=== PATIENT | male | born 1970 | race African-American/Black ===

== ENCOUNTER 2018-08-12 03:50 | Inpatient (IN) | payer SELFPAY ==
--- NOTE | 2018-08-12 04:12 | ER Document Report ---
ED General - General Stated Complaint: UNRESPONSIVE Time Seen by Provider: 08/12/18 04:05 Primary Care Provider: DOTTIE HERNANDEZ [NO LOCAL MD] - Follow up as needed Notes: Patient is a 48-year-old male who presents with complaint of altered mental status. Patient's started having back pain 2 days ago. He says he was hurting all over but mainly in his back. No injuries. No trauma. No fevers. His took him to urgent care on Saturday. They saw him and prescribed him Flexeril and prednisone. He got the prescriptions filled Saturday. At that time he was continued have body aches but also started to have headaches as well. He took the first dose of Flexeril around 1 PM. says around 7 PM he started acting confused and altered. He would at times tense up. Tonight he fell to the floor and was poorly responsive. She called the ambulance. Patient awoke but did not want to go by EMS and therefore the drove him here. When she pulled up he was tensed up in the seat and would not move out the seat. Patient currently cancer some questions but obviously has some confusion. says he has no history of drug abuse. She does not suspect he took any other medications other than Motrin aside from the Flexeril and prednisone. He currently does not take medications on a normal basis. He is never had anything like this ever happened to him before. No fevers over the last few days. In triage she is afebrile. No history of seizures. Patient's says that he does drink every day. She says the last time he drank was Saturday. She is unsure if he is ever had withdrawal as she says he never typically stops drinking. - Related Data Allergies/Adverse Reactions: No Known Allergies Allergy (Verified 08/12/18 05:37) Past Medical History - Social History Smoking Status: Never Smoker Frequency of alcohol use: Heavy Drug Abuse: None Family History: Reviewed & Not Pertinent Review of Systems - Review of Systems Notes: My Normal Review Basic REVIEW OF SYSTEMS: CONSTITUTIONAL : Denies fever, chills, or sweats. Denies recent illness. EENT: Denies eye, ear, throat, or mouth pain or symptoms. Denies nasal or sinus congestion. CARDIOVASCULAR: Denies chest pain. RESPIRATORY: Denies cough, cold, or chest congestion. Denies shortness of breath, difficulty breathing, or wheezing. GASTROINTESTINAL: Denies abdominal pain. Denies nausea, vomiting, or diarrhea. GENITOURINARY: Denies difficulty urinating, painful urination, burning, frequency, or blood in urine. MUSCULOSKELETAL: Denies neck or back pain or joint pain or swelling. SKIN: Denies rash or skin lesions. NEUROLOGICAL: Altered mental status. Headache. Episodes of "tensing up". ALL OTHER SYSTEMS REVIEWED AND NEGATIVE. Physical Exam - Vital signs Vitals: Temp 99.1 F 08/12/18 03:59 - Notes Notes: General Appearance: First into the room the patient is laying in bed with his eyes closed. Eventually able to get him to wake up. Patient still somewhat but able to answer my questions. Most history is obtained from . Patient says he has some pain into his back when I lift his left leg. He denies any pain when I lift his right leg. Vitals: reviewed, See vital signs table. Head: no swelling or tenderness to the head Eyes: PERRL, EOMI, Conjuctiva clear Mouth: No decreasd moisture Throat: No tonsillar inflammation, No airway obstruction, No lymphadenopathy Neck: Supple, no neck tenderness, No thyromegaly Lungs: No wheezing, No rales, No rhonci, No accessory muscle use, good air exchange bilaterally. Heart: Normal rate, Regular rythm, No murmur, no rub Abdomen: Normal BS, soft, No rigidity, No abdominal tenderness, No guarding, no rebound, no abdominal masses, no organomegaly Back: Patient complains of some back pain when I have him sit up. Has some pain to palpation over the lumbar and thoracic paraspinal musculature. Extremities: strength 5/5 in all extremities, good pulses in all extremities, no swelling or tenderness in the extremities, no edema. Skin: warm, dry, appropriate color, no rash Neuro: speech clear, oriented x 2, somnolent affect, responds appropriately to come questions. She is able to move all 4 extremities on his own. Metric facial movement. Course - Re-evaluation Re-evalutation: 08/12/18 05:26 Attempt to perform LP at L4-5. I advanced the needle to what I felt to be the appropriate location but no CSF return. I therefore tried L3-L4 interspace. 08/12/18 05:35 Reports I cannot rule out encephalitis meningitis as a potential cause. I feel like this needs to be ruled out based on the fact patient has leukocytosis and confusion and had a headache and back pain before even starting the medications that he was given at the urgent care. I will go ahead and cover him with acyclovir and Rocephin. I have ordered LP under fluoroscopy to be performed. I did speak with the hospitalist, Dr. Reyna, who agrees to evaluate the patient for admission. His confusion could be related to the cyclobenzaprine that he took a dose of. This can sometimes cause hallucinations and dystonia in some people however, does not explain why he has had so much headache and back pain over the last 2 days. His symptoms could be related to alcohol withdrawal. However I cannot be 100% sure of this either as the patient is not tachycardic and does not have a tremor. I will give him thiamine. I have given folic acid. I have given a dose of Versed. He is getting IV fluids. Patient will be admitted to further determine the cause of his altered mental status. Dictation of this chart was performed using voice recognition software; therefore, there may be some unintended grammatical errors. - Vital Signs Vital signs: Temp Pulse Resp BP Pulse Ox 99.1 F 08/12/18 03:59 - Laboratory Result Diagrams: 08/12/18 03:56 08/12/18 03:56 Laboratory results interpreted by me: 08/12/18 08/12/18 03:56 03:56 WBC 19.3 H Seg Neuts % (Manual) 93 H Lymphocytes % (Manual) 3 L Abs Neuts (Manual) 17.9 H Sodium 132.8 L Chloride 94 L Glucose 183 H Salicylates < 1.0 L Acetaminophen < 10 L - EKG Interpretation by Me Additional EKG results interpreted by me: 08/12/18 04:13 EKG is reviewed and interpreted by me. EKG shows normal sinus rhythm with a rate of [address] segment elevation or depression. No ischemic T wave inversions. IA interval, QRS duration, QT intervals are within normal range. No old EKG available for comparison. Procedures - Lumbar Puncture Lumbar puncture Consent obtained: Yes Patient position: Lying Needle size: 20 Anesthetic type: 1% Lidocaine mL's of anesthetic: 5 Amount/type of drainage: none Number of attempts: 2 Complications: No Discharge - Discharge Clinical Impression: Encephalopathy acute, Back pain, Headache, Alcohol dependence Condition: Good Disposition: ADMITTED INPATIENT Admitting Provider: Hospitalist Unit Admitted: IMCU Referrals: LOCAL,NO [NO LOCAL MD] - Follow up as needed
[2018-08-12 04:21] LABS: HEMATOCRIT 41.4 % (37.9-51.0); HEMOGLOBIN 14.3 g/dL (13.5-17.0); MEAN CORPUSCULAR HEMOGLOBIN 31.8 pg (27.0-33.4); MEAN CORPUSCULAR HGB CONC 34.5 g/dL (32.0-36.0); MEAN CORPUSCULAR VOLUME 92 fl (80-97); PLATELET COUNT 172 10^3/uL (150-450); RED CELL DISTRIBUTION WIDTH 13.9 % (11.5-14.0); WHITE BLOOD COUNT 19.3 10^3/uL (4.0-10.5)
[2018-08-12 04:31] LABS: ALANINE AMINOTRANSFERASE 25 U/L (21-72); ALBUMIN 4.2 g/dL (3.5-5.0); ALKALINE PHOSPHATASE 67 U/L (38-126); ANION GAP 13 (5-19); ASPARTATE AMINO TRANSFERASE 21 U/L (17-59); BILIRUBIN,DIRECT 0.3 mg/dL (0.0-0.4); BILIRUBIN,TOTAL 0.7 mg/dL (0.2-1.3); BLOOD UREA NITROGEN 17 mg/dL (7-20); CALCIUM 9.4 mg/dL (8.4-10.2); CARBON DIOXIDE 26 mmol/L (22-30); CHLORIDE 94 mmol/L (98-107); GLUCOSE 183 mg/dL (75-110); POTASSIUM 3.7 mmol/L (3.6-5.0); SODIUM 132.8 mmol/L (137-145)
[2018-08-12 04:33] LABS: ACETAMINOPHEN < 10 ug/mL (10-30); ALCOHOL < 10 mg/dL (NONE DETECTED); SALICYLATE < 1.0 mg/dL (2.0-20.0)
[2018-08-12] MEDS ORDERED: THIAMINE HCL 500 MG in NORMAL SALINE 250 ML IV ONE (04:35)
--- NOTE | 2018-08-12 04:35 | RADIOLOGY REPORT (SQ) ---
EXAM DESCRIPTION: XR CHEST 1 VIEW COMPLETED DATE/TME: 08/12/2018 04:05 CLINICAL HISTORY: 48 years, Male, altered mental status COMPARISON: None. NUMBER OF VIEWS: One TECHNIQUE: AP view of the chest LIMITATIONS: None. FINDINGS: Lungs are clear. The heart is normal in size. There is no pneumothorax or pleural effusion. There is no acute fracture IMPRESSION: No acute cardiopulmonary abnormality copyright 2010 [employer]- All Rights Reserved
[2018-08-12 04:36] LABS: ABSOLUTE LYMPHOCYTES# (MANUAL) 0.6 10^3/uL (0.5-4.7); ABSOLUTE MONOCYTES # (MANUAL) 0.8 10^3/uL (0.1-1.4); ABSOLUTE NEUTROPHILS# (MANUAL) 17.9 10^3/uL (1.7-8.2); BASOPHILS % (MANUAL) 0 % (0-2); EOSINOPHILS % (MANUAL) 0 % (0-6); LYMPHOCYTES % (MANUAL) 3 % (13-45); MONOCYTES % (MANUAL) 4 % (3-13); SEGMENTED NEUTROPHILS % (MAN) 93 % (42-78); TOTAL CELLS COUNTED 100
[2018-08-12 04:37] LABS: PLATELET COMMENT ADEQUATE; RBC MORPHOLOGY COMMENT NORMO-CYTIC/CHROMIC
[2018-08-12] MEDS ORDERED: NORMAL SALINE 1000 ML 1,000 ML IV ONE (04:38)
[2018-08-12] MEDS ORDERED: DIAZEPAM INJ 10 MG/2 ML DISP.SYRIN IV ONE (04:39)
[2018-08-12] MEDS ORDERED: LIDOCAINE 1% INJ-PF (10 MG/ML) 30 ML SDV INJ ONE (04:39)
[2018-08-12] MEDS ORDERED: THIAMINE HCL INJ 200 MG/2 ML VIAL ONE (04:44)
[2018-08-12] MEDS ORDERED: MIDAZOLAM 2 MG/2 ML INJ IV ONE (04:45)
--- NOTE | 2018-08-12 04:46 | RADIOLOGY REPORT (SQ) ---
CLINICAL HISTORY: altered mental status COMPARISON: None. TECHNIQUE: CT HEAD WITHOUT IV CONTRAST on 08/12/2018 4:05 AM [facility] This exam was performed according to our departmental dose-optimization program, which includes automated exposure control, adjustment of the mA and/or kV according to patient size and/or use of iterative reconstruction technique. FINDINGS: There is no acute hemorrhage, mass effect or midline shift. Laird-white differentiation is preserved. There is no hydrocephalus. There is no significant volume loss for age. The calvarium is intact. Orbits and globes are unremarkable. The paranasal sinuses are clear. Mastoid air cells are clear. IMPRESSION: No acute intracranial findings.
[2018-08-12] MEDS ORDERED: FOLIC ACID INJ 5 MG/1 ML 10 ML VIAL ONE (04:49)
[2018-08-12] MEDS ORDERED: ACYCLOVIR SODIUM INJ/PF 500 MG/10 ML SDV IV ONE (05:00)
[2018-08-12] MEDS ORDERED: FOLIC ACID INJ 5 MG/1 ML 10 ML VIAL IV ONE (05:00)
[2018-08-12] MEDS ORDERED: CEFTRIAXONE INJ 1000 MG VIAL IV ONE (05:00)
[2018-08-12] MEDS ORDERED: MAG HYDROX/AL HYDROX/SIMETH SUSP 30 ML UDCUP PO PRN (05:54)
[2018-08-12] MEDS ORDERED: ONDANSETRON HCL INJ/PF 4 MG/2 ML SDV IV PRN (05:54)
[2018-08-12] MEDS ORDERED: ONDANSETRON 4 MG TAB.RAPDIS PO PRN (05:54)
[2018-08-12] MEDS ORDERED: MAGNESIUM HYDROXIDE SUSP 30 ML UDCUP PO PRN (05:54)
[2018-08-12] MEDS ORDERED: DIAZEPAM INJ 10 MG/2 ML DISP.SYRIN IV PRN (06:02)
[2018-08-12] MEDS ORDERED: LABETALOL HCL INJ 20 MG/4 ML DISP.SYRIN IV PRN (06:02)
[2018-08-12] MEDS ORDERED: NALBUPHINE HCL INJ 10 MG/1 ML AMPULE IV PRN (06:02)
[2018-08-12] MEDS ORDERED: ACETAMINOPHEN 325 MG TABLET PO PRN (06:02)
[2018-08-12] MEDS ORDERED: FENTANYL CITRATE INJ/PF 100 MCG/2 ML AMPUL IV ONE (06:05)
[2018-08-12] MEDS ORDERED: ACYCLOVIR SODIUM INJ/PF 500 MG/10 ML SDV IV SCH (06:15)
[2018-08-12 06:34] LABS: APPEARANCE,URINE CLEAR; BILIRUBIN,URINE NEGATIVE (NEGATIVE); COLOR,URINE YELLOW; GLUCOSE, URINE 150 mg/dL (NEGATIVE); KETONES,URINE NEGATIVE (NEGATIVE); LEUKOCYTE ESTERASE,URINE NEGATIVE (NEGATIVE); NITRITE,URINE NEGATIVE (NEGATIVE); PROTEIN,URINE 30 mg/dL (NEGATIVE); URINE SPECIFIC GRAVITY 1.016
[2018-08-12] MEDS: HEPARIN SOD (PORCINE) 5,000 UNIT/ML 1 ML SYRINGE SUBCUT SCH ×2 (06:49→18:46)
[2018-08-12 06:53] LABS: URINE AMPHETAMINES SCREEN NEGATIVE; URINE BARBITURATES SCREEN NEGATIVE; URINE BENZODIAZEPINES SCREEN UNCONFIRMED POSITIVE; URINE COCAINE SCREEN NEGATIVE; URINE MARIJUANA (THC) SCREEN UNCONFIRMED POSITIVE; URINE METHADONE SCREEN NEGATIVE; URINE PHENCYCLIDINE SCREEN NEGATIVE
[2018-08-12 07:16] LABS: CREATINE KINASE MB 0.35 ng/mL (<4.55)
[2018-08-12 07:17] LABS: TROPONIN I < 0.012 ng/mL
--- NOTE | 2018-08-12 07:17 | PDOC H&P ---
History of Present Illness Admission Date/PCP: 08/12/2018 No PCP Patient complains of: AMS History of Present Illness: NICKI COWAN is a 48 year old male who presented to the emergency room with a 2- day history of generalized malaise and back pain. 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 By the morning of 08/11/2018 his pain had increased to become severe in his right shoulder, right knee and neck and was seen at the urgent care center where he was treated with [id number] ibuprofen, plus prednisone and Flexeril. He took 1 dose of the ibuprofen, prednisone and Flexeril and after several hours felt as though he were actually getting worse rather than better. He had an episode where he became very rigid and unable to move his arms and legs at home for which EMS was summoned to bring him to the emergency room. He refused to be transported to the emergency room and his brought him in their own vehicle. When they arrived at the ER parking lot he again experienced another episode of severe rigidity and inability to move his arms and legs which was also accompanied by incoherent talking and inappropriate answers when his asked him questions. She called EMS again to bring him in from the parking lot to the emergency room. Patient states that he had a bad headache after the last episode and his neck hurts a lot as well as the rest of his back. He admits to being a regular user of alcohol drinking 3 or 4 beers a day but he has not had any alcohol since the late evening on 08/09/2018. He does smoke marijuana on a fairly regular basis but otherwise uses no other drugs. He is a regular 1 pack a day cigarette smoker. In the emergency room he was found to have a negative CT scan of the head and a lumbar puncture attempt was unsuccessful. He was noted to have a leukocytosis of greater than 19,000 and no fever or history of fever. He was started on em piric antibiotic and antiviral therapy by the emergency room physician. Patient is admitted to the hospital for further evaluation and treatment. Past Medical History Cardiac Medical History: Denies: Coronary Artery Disease, Hypertension Pulmonary Medical History: Denies: Asthma, Chronic Obstructive Pulmonary Disease (COPD), Respiratory Failure, Tuberculosis EENT Medical History: Reports: None Neurological Medical History: Denies: Multiple Sclerosis, Seizures Endocrine Medical History: Denies: Diabetes Mellitus Type 1, Diabetes Mellitus Type 2, Hyperthyroidism, Hypothyroidism Renal/ Medical History: Reports: Nephrolithiasis Denies: Chronic Kidney Disease Renal/ History Note: One episode of nephrolithiasis several years ago Malignancy Medical History: Reports: None GI Medical History: Denies: Cirrhosis, Hepatitis Musculoskeltal Medical History: Denies: Arthritis, Gout Skin Medical History: Denies: Eczema, Psoriasis Psychiatric Medical History: Reports: Substance Abuse, Tobacco Dependency Denies: Alcohol Dependency Traumatic Medical History: Reports: None Hematology: Denies: Anemia, Bleeding Tendencies Infectious Medical History: Reports: None Past Surgical History Past Surgical History: Reports: None Social History Information Source: Patient, Relative Lives with: Spouse/Significant other Smoking Status: Current Every Day Smoker Frequency of Alcohol Use: Heavy - Generally drinks 3-4 beers every day, reports last drink on the evening of 08/09/2018 Hx Recreational Drug Use: Yes Drugs: Marijuana Hx Prescription Drug Abuse: No - Advance Directive Resuscitation Status: Full Code Surrogate healthcare decision maker:: Spouse Family History Family History: denies: CAD, DM, Hypertension, Malignancy Parental Family History Reviewed: Yes Children Family History Reviewed: No Sibling(s) Family History Reviewed.: Yes Medication/Allergy Allergies/Adverse Reactions: No Known Allergies Allergy (Verified 08/12/18 05:37) Review of Systems Constitutional: PRESENT: as per HPI, other - Generalized malaise. ABSENT: chills, fever(s) Eyes: ABSENT: visual disturbances, other - Eye pain Ears: ABSENT: hearing changes, other - Ear pain Nose, Mouth, and Throat: ABSENT: mouth pain, sore throat Cardiovascular: ABSENT: chest pain, dyspnea on exertion, edema, orthropnea, palpitations Respiratory: ABSENT: cough, dyspnea Gastrointestinal: ABSENT: abdominal pain, constipation, diarrhea, nausea, vomiting Genitourinary: ABSENT: dysuria, hematuria Musculoskeletal: PRESENT: as per HPI, back pain, other - Generalized malaise/muscle pain. ABSENT: deformity, joint swelling Integumentary: ABSENT: pruritus, rash Neurological: PRESENT: as per HPI, abnormal movements - Episodes of "stiffening up", confusion, other - Lethargy. ABSENT: convulsions, memory loss, tremor(s) Psychiatric: ABSENT: anxiety, depression Endocrine: ABSENT: cold intolerance, heat intolerance Hematologic/Lymphatic: ABSENT: easy bleeding, easy bruising Physical Exam Vital Signs: Temp Pulse Resp BP Pulse Ox 99.1 F 08/12/18 03:59 General appearance: PRESENT: no acute distress, cooperative, other - Lethargic Head exam: PRESENT: atraumatic, normocephalic Eye exam: PRESENT: conjunctiva pink, EOMI. ABSENT: scleral icterus Ear exam: PRESENT: normal external ear exam. ABSENT: bleeding, drainage Mouth exam: PRESENT: dry mucosa, neck supple Neck exam: ABSENT: thyromegaly, tracheal deviation Respiratory exam: PRESENT: clear to auscultation keiko, symmetrical, unlabored Cardiovascular exam: PRESENT: RRR. ABSENT: clicks, gallop, rubs Pulses: PRESENT: normal radial pulses, normal dorsalis pedis pul Vascular exam: PRESENT: normal capillary refill. ABSENT: pallor GI/Abdominal exam: PRESENT: normal bowel sounds, soft Rectal exam: PRESENT: deferred Extremities exam: ABSENT: joint swelling, pedal edema Musculoskeletal exam: PRESENT: tenderness - Generalized muscular tenderness on palpation, most prominent in the upper back and neck.. ABSENT: deformity, di slocation Neurological exam: PRESENT: altered - Lethargic and mildly confused at times, CN II-XII grossly intact Psychiatric exam: PRESENT: appropriate affect, normal mood, other - Lethargic Skin exam: PRESENT: dry, intact, warm. ABSENT: jaundice, rash, urticaria Results Laboratory Results: 08/12/18 03:56 08/12/18 03:56 08/12/18 08/12/18 03:56 03:56 WBC 19.3 H RBC 4.50 Hgb 14.3 Hct 41.4 MCV 92 MCH 31.8 MCHC 34.5 RDW 13.9 Plt Count 172 Seg Neutrophils % Not Reportable Lymphocytes % Not Reportable Monocytes % Not Reportable Eosinophils % Not Reportable Basophils % Not Reportable Absolute Neutrophils Not Reportable Absolute Lymphocytes Not Reportable Absolute Monocytes Not Reportable Absolute Eosinophils Not Reportable Absolute Basophils Not Reportable Sodium 132.8 L Potassium 3.7 Chloride 94 L Carbon Dioxide 26 Anion Gap 13 BUN 17 Creatinine 1.05 Est GFR ( Amer) > 60 Est GFR (Non-Af Amer) > 60 Glucose 183 H Calcium 9.4 Total Bilirubin 0.7 AST 21 ALT 25 Alkaline Phosphatase 67 Total Protein 7.0 Albumin 4.2 Impressions: Chest X-Ray 08/12/18 04:05 IMPRESSION: No acute cardiopulmonary abnormality copyright 2010 [employer]- All Rights Reserved Head CT 08/12/18 04:05 IMPRESSION: No acute intracranial findings. Assessment & Plan - Diagnosis (1) Leukocytosis Qualifiers: Leukocytosis type: unspecified Qualified Code(s): D72.829 - Elevated white blood cell count, unspecified Is this a current diagnosis for this admission?: Yes Plan: Patient's leukocytosis will be followed with serial CBCs on a daily basis. Additional evaluation of the etiology leukocytosis will include a lumbar puncture performed by radiology later today with other evaluation and treatment as appropriate. (2) Encephalopathy acute Is this a current diagnosis for this admission?: Yes Plan: Patient's encephalopathy will be evaluated more thoroughly by lumbar puncture performed by radiology later today. In the interim the patient will be continued on empiric anti-biotic and antiviral therapy. (3) Alcohol abuse Is this a current diagnosis for this admission?: Yes Plan: Patient will be observed for any withdrawal effects from use of alcohol although his usage is generally not significant enough to cause alcohol withdrawal symptoms and most persons. (4) Malaise and fatigue Is this a current diagnosis for this admission?: Yes Plan: Patient will be treated with IV fluids and will also receive a banana bag on a daily basis. He will receive other supportive cares is required and symptomatic cares which will include Nubain 10 mg IV every 3 hours as needed pain. (5) Tobacco use disorder, moderate, dependence Is this a current diagnosis for this admission?: Yes Plan: Smoking cessation is advised and counseled briefly. Nicotine replacement patch is available to the patient if desired. - Time Time Spent: 30 to 50 Minutes Critical Time spent with patient: Less than 15 minutes Smoking Cessation Education: 3 to 10 minutes Medications reviewed and adjusted accordingly: No - no meds Anticipated discharge: Home - Inpatient Certification Based on my medical assessment, after consideration of the patient's james rbidities, presenting symptoms, or acuity I expect that the services needed warrant INPATIENT care.: Yes I certify that my determination is in accordance with my understanding of Medicare's requirements for reasonable and necessary INPATIENT services [42 CFR 412.3e].: Yes Medical Necessity: Need Close Monitoring Due to Risk of Patient Decompensation, Need For IV Fluids, Need For Continuous Telemetry Monitoring, Need for Neurological Checks, Need for IV Antibiotics, Risk of Complication if Not Cared For in Hospital
[2018-08-12 07:20] LABS: FREE T4 (FREE THYROXINE) 1.03 ng/dL (0.78-2.19)
[2018-08-12 07:34] LABS: THYROID STIMULATING HORMONE 2.17 uIU/mL (0.47-4.68)
[2018-08-12 08:00] LABS: FREE T3 3.59 pg/mL (2.77-5.27)
[2018-08-12] MEDS ORDERED: LORAZEPAM INJ 2 MG/1 ML VIAL ONE (08:17)
[2018-08-12 08:25] LABS: A TYPE INFLUENZA AG NEGATIVE (NEGATIVE); B INFLUENZA AG NEGATIVE (NEGATIVE)
[2018-08-12] MEDS ORDERED: LORAZEPAM INJ 2 MG/1 ML VIAL IV ONE ×2 (08:35→14:00)
[2018-08-12] MEDS: POTASSI CL 20 MEQ/NS 1L 1,000 ML IV PRN ×2 (08:56→15:44)
[2018-08-12 09:57] LABS: INTERNATIONAL RATION (INR) 0.96; PROTHROMBIN TIME 13.3 SEC (11.4-15.4)
[2018-08-12 09:58] LABS: PARTIAL THROMBOPLASTIN TIME 32.5 SEC (23.5-35.8)
[2018-08-12] MEDS ORDERED: THIAMINE HCL 100 MG, FOLIC ACID 1 MG in NORMAL SALINE 250 ML IV SCH (10:00)
[2018-08-12] MEDS ORDERED: FAMOTIDINE 20 MG TABLET PO SCH (10:00)
[2018-08-12] MEDS ORDERED: ACETAMINOPHEN 1,000 MG/100 ML RTUPB IV ONE (10:13)
[2018-08-12 10:37] LABS: PHOSPHORUS 2.3 mg/dL (2.5-4.5)
[2018-08-12] MEDS: DOCUSATE SODIUM 100 MG CAPSULE PO SCH ×2 (10:37→18:56)
[2018-08-12 10:46] LABS: CREATINE KINASE MB 0.49 ng/mL (<4.55)
[2018-08-12 10:51] LABS: TROPONIN I < 0.012 ng/mL
[2018-08-12 10:52] LABS: C-REACTIVE PROTEIN 216.4 mg/L (<10.0)
[2018-08-12] MEDS: LORAZEPAM INJ 2 MG/1 ML VIAL IV PRN ×3 (13:02→16:55)
[2018-08-12] MEDS ORDERED: ACYCLOVIR SODIUM IV SCH (14:00)
[2018-08-12] MEDS ORDERED: NORMAL SALINE IV SCH (14:00)
[2018-08-12] MEDS ORDERED: VANCOMYCIN HCL 0 MG in DEXTROSE 5%-WATER 250 ML IV NR (15:30)
--- NOTE | 2018-08-12 15:43 | RADIOLOGY REPORT (SQ) ---
EXAM DESCRIPTION: FLUORO/NEEDLE PLACEMENT/SPINE; LUMBAR PUNCTURE COMPLETED DATE/TIME: 08/12/2018 2:50 pm REASON FOR STUDY: leukocytosis with altered mental status; acute encephalopathy COMPARISON: None. FLUOROSCOPY TIME: 21 seconds 1 images saved to PACS. TECHNIQUE: Fluoroscopic guided lumbar puncture. LIMITATIONS: None. PROCEDURE: After written consent and assessment were obtained, the patient was brought into the fluo roscopy room and placed prone on the table. The patient's lower back was prepped in a sterile fashio n and an entry site was selected under live fluoroscopic guidance. The entry site was anesthetized wi th 1% lidocaine. A 22 gauge needle was advanced through the skin and into the thecal sac at the level of L3-L4. After approximately 10 ml was drained, the needle was removed and a sterile bandage was pl aced of the site. Specimens were sent to the lab for testing. A fluoroscopic spot image was saved t o PACS confirming level access. FINDINGS: Cloudy CSF. IMPRESSION: Lumbar puncture under fluoroscopy. No immediate complication. COMMENT: Patient medication list reviewed: Yes- Quality ID# [id number]:Eligible professional attests to doc umenting in the medical record they obtained, updated, or reviewed the patient's current medications. . Quality ID 145: Final reports for procedures using fluoroscopy that document radiation exposure audrey anthony, or exposure time and number of fluorographic images (if radiation exposure indices are not avail able) TECHNICAL DOCUMENTATION: JOB ID: [id number] [employer]- All Rights Reserved Reading location - IP/workstation name: [email or web address]
[2018-08-12] MEDS ORDERED: NORMAL SALINE 1000 ML 1,000 ML IV PRN (15:48)
--- NOTE | 2018-08-12 15:51 | PDOC PROGRESS REPORT ---
Subjective Progress Note for:: 08/12/18 Subjective:: The patient is a 48-year-old -[place] male who presented to the emergency room with a 2-day history of worsening back pain, weakness and just feeling poorly. He began having rather significant back discomfort on 08/10/2018 and this is continued and worsened and then he developed severe right shoulder, right neck and the neck pain. He was seen at a local urgent care yesterday where he was treated with [id number] ibuprofen in addition to prednisone and Flexeril. He went home and took these medications and several hours later he had an episode where he became quite rigid and was unable to move his arms or legs at home. EMS was called but he refused to be transported to the emergency room and wanted his to take him in their own vehicle. When they arrived at the ER in the parking lot he had another episode of severe rigidity and inability to move his arms and legs which was accompanied by altered mental status. EMS was once again summoned and they brought him into the emergency room. The patient has had a severe headache for the past 2 days that is been worsening. He smokes marijuana and also 1 pack of day of cigarettes. He does drink beer on a regular basis and drinks about 4-5 beers a day. In the emergency room he was found to have a significant leukocytosis of greater than 19,000. He had no fever. He was started on empiric antibiotics and antiviral therapy and was admitted to the hospital for further evaluation and treatment. When I went to see the patient today he was acutely encephalopathic. He would not answer questions appropriately although he would open his eyes and mumble incoherently. He appears to be significantly uncomfortable. Review of systems could not be obtained. Reason For Visit: ACUTE ENCEPHALOPATHY WITH OF UNCERTAIN ETIOLOGY Physical Exam Vital Signs: Temp Pulse Resp BP Pulse Ox 99.2 F 24 H 142/92 H 96 08/12/18 11:14 08/12/18 13:02 08/12/18 13:02 08/12/18 13:02 Intake & Output 08/11/18 08/12/18 08/13/18 06:59 06:59 06:59 Intake Total 1255 351.2 Balance 1255 351.2 Weight 65.2 kg General appearance: PRESENT: thin, other - Acutely ill appearing 48-year-old -[place] gentleman. He appears to be in moderate distress at the time of my visit. Head exam: PRESENT: atraumatic, normocephalic Eye exam: PRESENT: conjunctiva pink. ABSENT: scleral icterus Mouth exam: PRESENT: dry mucosa, tongue midline Respiratory exam: PRESENT: other - He would not cooperate for an exam. He sounds fairly clear anteriorly. He was mumbling so this exam is limited. Cardiovascular exam: PRESENT: +S1, +S2, tachycardia, other - Again this was a limited exam due to the fact that the patient was mumbling. GI/Abdominal exam: PRESENT: normal bowel sounds, soft. ABSENT: distended, gu arding, mass, organolmegaly, rebound, tenderness Extremities exam: PRESENT: full ROM. ABSENT: calf tenderness, clubbing, pedal edema Neurological exam: PRESENT: awake, oriented to person, ataxia. ABSENT: alert, altered, oriented to place, oriented to time, oriented to situation, CN II-XII grossly intact Psychiatric exam: PRESENT: agitated Skin exam: PRESENT: dry, intact, warm. ABSENT: cyanosis, rash Results Laboratory Results: 08/12/18 03:56 08/12/18 03:56 08/12/18 08/12/18 08/12/18 03:56 03:56 03:56 WBC 19.3 H RBC 4.50 Hgb 14.3 Hct 41.4 MCV 92 MCH 31.8 MCHC 34.5 RDW 13.9 Plt Count 172 Seg Neutrophils % Not Reportable Lymphocytes % Not Reportable Monocytes % Not Reportable Eosinophils % Not Reportable Basophils % Not Reportable Absolute Neutrophils Not Reportable Absolute Lymphocytes Not Reportable Absolute Monocytes Not Reportable Absolute Eosinophils Not Reportable Absolute Basophils Not Reportable Sodium 132.8 L Potassium 3.7 Chloride 94 L Carbon Dioxide 26 Anion Gap 13 BUN 17 Creatinine 1.05 Est GFR ( Amer) > 60 Est GFR (Non-Af Amer) > 60 Glucose 183 H Calcium 9.4 Phosphorus Total Bilirubin 0.7 AST 21 ALT 25 Alkaline Phosphatase 67 C-Reactive Protein Total Protein 7.0 Albumin 4.2 TSH 2.17 Free T4 1.03 Free T3 pg/mL 3.59 Urine Color Urine Appearance Urine pH Ur Specific [place] Urine Protein Urine Glucose (UA) Urine Ketones Urine Blood Urine Nitrite Ur Leukocyte Esterase Urine WBC (Auto) Urine RBC (Auto) 08/12/18 08/12/18 06:03 10:08 WBC RBC Hgb Hct MCV MCH MCHC RDW Plt Count Seg Neutrophils % Lymphocytes % Monocytes % Eosinophils % Basophils % Absolute Neutrophils Absolute Lymphocytes Absolute Monocytes Absolute Eosinophils Absolute Basophils Sodium Potassium Chloride Carbon Dioxide Anion Gap BUN Creatinine Est GFR ( Amer) Est GFR (Non-Af Amer) Glucose Calcium Phosphorus 2.3 L Total Bilirubin AST ALT Alkaline Phosphatase C-Reactive Protein 216.4 H Total Protein Albumin TSH Free T4 Free T3 pg/mL Urine Color YELLOW Urine Appearance CLEAR Urine pH 6.0 Ur Specific [place] 1.016 Urine Protein 30 H Urine Glucose (UA) 150 H Urine Ketones NEGATIVE Urine Blood SMALL H Urine Nitrite NEGATIVE Ur Leukocyte Esterase NEGATIVE Urine WBC (Auto) 3 Urine RBC (Auto) 3 08/12/18 08/12/18 08/12/18 03:56 03:56 10:08 Creatine Kinase 161 163 CK-MB (CK-2) 0.35 Troponin I < 0.012 08/12/18 10:08 Creatine Kinase CK-MB (CK-2) 0.49 Troponin I < 0.012 Impressions: Chest X-Ray 08/12/18 04:05 IMPRESSION: No acute cardiopulmonary abnormality copyright 2011 [employer]- All Rights Reserved Head CT 08/12/18 04:05 IMPRESSION: No acute intracranial findings. Assessment & Plan - Diagnosis (1) Acute encephalopathy Is this a current diagnosis for this admission?: Yes Plan: The patient remains acutely encephalopathic. This is likely due to underlying meningitis. (2) Meningitis Is this a current diagnosis for this admission?: Yes Plan: I was called right after the procedure and the fluid drawn off was quite cloudy. He is already received IV Rocephin today. I will add IV vancomycin and meropenem. He is receiving IV acyclovir. At this point the patient seems to be worsening. I went back to visit the patient at the bedside. He seems much more confused and agitated than he did when he first came into the hospitalization. The patient does have a history of rather heavy alcohol use. I am concerned that he might develop seizures or even require intubation going forward. He is acutely ill. We are going to transfer him to the ICU. I discussed with the family and we are going to pursue transfer to [facility] for further evaluation. I do not believe we have the capability to take care of this patient in this facility if his condition should worsen. We do not have neurology or neurosurgery. (3) Severe low back pain Is this a current diagnosis for this admission?: Yes Plan: Concerning that this is how his symptoms presented. He really needs imaging studies such as an MRI of his lumbar spine to rule out discitis or epidural abscess. We do not have neurosurgery here at this facility. At this point the patient really is not stable enough to lie still in the MRI scanner for now. He has been started on broad-spectrum IV antibiotics. (4) Alcohol abuse Is this a current diagnosis for this admission?: Yes Plan: Alcohol abuse he has received multiple doses of IV Ativan. We will place him on IV Ativan scheduled every 4 hours for now. He is at high risk of having a seizure. It is unclear at this point whether he is going through early alcohol withdrawal or if this is just his worsening meningitis. At this point were not going to take any chances and we will treat him for possible withdrawal. (5) Polysubstance abuse Is this a current diagnosis for this admission?: Yes Plan: The patient tested positive for benzodiazepines and marijuana. He also uses alcohol. (6) Tobacco dependence Is this a current diagnosis for this admission?: Yes Plan: I will place a nicotine patch (7) Hyponatremia Is this a current diagnosis for this admission?: Yes Plan: The patient has acute hyponatremia possibly due to intravascular volume depletion. I will will start him on IV fluids today. He will have a chemistry panel in the morning. (8) Full code status Is this a current diagnosis for this admission?: Yes - Time Time Spent with patient: 35 or more minutes Medications reviewed and adjusted accordingly: Yes - Inpatient Certification Medical Necessity: Need Close Monitoring Due to Risk of Patient Decompensation, Need For IV Fluids, Need For Continuous Telemetry Monitoring, Need for Neurological Checks, Need for IV Antibiotics, Other - Inpatient hospitalization remains necessary. This patient is acutely ill and his care has been escalated to the ICU. I am going to try to transfer him to a tertiary center for further evaluation but I believe he will be in the hospital for several more days. His prognosis is guarded at this point.
--- NOTE | 2018-08-12 15:53 | PDOC TRANSFER SUMMARY ---
General Admission Date/PCP: 08/12/18 05:47 Resuscitation Status: Full Code - Transfer Diagnosis (1) Acute encephalopathy Is this a current diagnosis for this admission?: Yes Diagnosis Summary: Due to his underlying meningitis and acute infection. (2) Meningitis Is this a current diagnosis for this admission?: Yes Diagnosis Summary: Cell count is pending. The patient has a CRP of 216. They called me at the time of his procedure to note that his spinal fluid was extremely cloudy. He has been started on IV vancomycin and meropenem. He is already received 2 g of Rocephin today. He also empirically is receiving acyclovir. (3) Positive blood culture Is this a current diagnosis for this admission?: Yes Diagnosis Summary: Just a few minutes ago 1 out of 2 of his blood cultures is now positive for gram-positive cocci in chains. I am quite concerned due to his severe low back pain that he could have a discitis or epidural abscess. We will get an MRI of the patient's lumbar spine this afternoon if possible. He has been started on IV vancomycin (4) Severe low back pain Is this a current diagnosis for this admission?: Yes Diagnosis Summary: We will get an MRI to rule out discitis or underlying epidural abscess. I am reluctant due to his altered mentation to give him narcotic pain medications at this point. He does not seem to be in acute pain just acutely agitated. (5) Alcohol abuse Is this a current diagnosis for this admission?: Yes Diagnosis Summary: He drinks 4-5 beers daily at home. I am going to place him on scheduled IV Ativan in the event that he should start going through some alcohol withdrawal. (6) Polysubstance abuse Is this a current diagnosis for this admission?: Yes Diagnosis Summary: Urine drug screen is positive for benzodiazepines as well as marijuana. He also drinks alcohol. His denies any history of IV drug use. (7) Tobacco dependence Is this a current diagnosis for this admission?: Yes Diagnosis Summary: He has a nicotine patch in place (8) Hyponatremia Is this a current diagnosis for this admission?: Yes Diagnosis Summary: Possibly due to intravascular volume depletion. He is been started on IV fluids. (9) Full code status Is this a current diagnosis for this admission?: Yes - Transfer Medications Home Medications: Cyclobenzaprine HCl [Flexeril 10 mg Tablet] 10 mg PO TID 08/12/18 Prednisone [Deltasone 20 mg Tablet] 40 mg PO DAILY 08/12/18 Transfer Medications: Current Medications Acetaminophen (Tylenol 325 Mg Tablet) 650 mg PO Q4HP PRN PRN Reason: For headache, pain or fever Stop: 09/11/18 06:01 Al Hydrox/Mg Hydrox/Simethicone (Maalox Plus Susp 30 Udcup) 30 ml PO Q6HP PRN PRN Reason: HEARTBURN Stop: 09/11/18 05:53 Docusate Sodium (Colace 100 Mg Capsule) 100 mg PO BID [facility] Stop: 09/11/18 09:59 Last Admin: 08/12/18 10:37 Dose: Not Given Documented by: Famotidine (Pepcid 20 Mg Tablet) 20 mg PO Q12 [facility] Stop: 09/11/18 09:59 Last Admin: 08/12/18 10:37 Dose: Not Given Documented by: Heparin Sodium (Porcine) (Heparin Inj 5,000 Units/Ml 1 Ml Syringe) 5,000 unit SUBCUT Q8 [facility] Stop: 09/11/18 05:59 Last Admin: 08/12/18 06:49 Dose: 5,000 unit Documented by: Potassium Chloride/Sodium Chloride (Nacl 0.9% 1000 Ml/Kcl 20 Meq Premix Bag) 1,000 mls @ 167 mls/hr IV CONTINUOUS PRN PRN Reason: THIS MED IS NOT "PRN" Stop: 09/11/18 06:05 Last Admin: 08/12/18 08:56 Dose: 167 mls/hr Documented by: Ceftriaxone Sodium/Dextrose (Rocephin Rtu 2 Gm/D5w 50 Ml Premix Bag) 2 gm in 50 mls @ 100 mls/hr IV Q12A [facility] Stop: 08/19/18 17:59 Thiamine HCl 100 mg/ Folic (Acid 1 mg/ Sodium Chloride) 251.2 mls @ 502.4 mls/hr IV DAILY [facility] Stop: 09/11/18 09:59 Last Infusion: 08/12/18 12:08 Dose: Infused Documented by: Acyclovir Sodium 650 mg/ (Sodium Chloride) 113 mls @ 113 mls/hr IV Q8 [facility] Stop: 08/19/18 13:59 Last Admin: 08/12/18 15:41 Dose: 113 mls/hr, 113 mls/hr Documented by: Ceftriaxone Sodium/Dextrose (Rocephin Rtu 2 Gm/D5w 50 Ml Premix Bag) 2 gm in 50 mls @ 100 mls/hr IV DAILY [facility] Stop: 08/20/18 09:59 Meropenem 1 gm/ Sodium (Chloride) 50 mls @ 100 mls/hr IV Q8 [facility] Stop: 08/19/18 15:29 Vancomycin HCl / Dextrose 250 mls @ 0 mls/hr IV .PHARMACY TO DOSE NR Stop: 08/19/18 15:29 Sodium Chloride (Nacl 0.9% 1000 Ml Iv Soln) 1,000 mls @ 125 mls/hr IV CONTINUOUS PRN PRN Reason: THIS MED IS NOT "PRN" Stop: 09/11/18 15:47 Labetalol HCl (Normodyne Inj 20 Mg/4 Ml Syringe) 20 mg IV Q2HP PRN PRN Reason: Give For Sbp >160 or Dbp >100 Stop: 09/11/18 06:01 Lorazepam (Ativan Inj 2 Mg/1 Ml Vial) 1 mg IV Q4HP PRN PRN Reason: ANXIETY/AGITATION Stop: 08/19/18 12:12 Last Admin: 08/12/18 13:02 Dose: 1 mg Documented by: Magnesium Hydroxide (Milk Of Magnesia 30 Ml Udcup) 30 ml PO HSP PRN PRN Reason: FOR CONSTIPATION Stop: 09/11/18 05:53 Nalbuphine HCl (Nubain Inj 10 Mg/1 Ml Ampule) 10 mg IV Q3H PRN PRN Reason: FOR PAIN Stop: 08/19/18 06:01 Ondansetron HCl (Zofran Inj/Pf 4 Mg/2 Ml Sdv) 4 mg IV Q4HP PRN PRN Reason: FOR NAUSEA/VOMITING Stop: 09/11/18 05:53 Last Admin: 08/12/18 11:39 Dose: 4 mg Documented by: Ondansetron HCl (Zofran Odt 4 Mg Tablet) 4 mg PO Q4HP PRN PRN Reason: FOR NAUSEA/VOMITING Stop: 09/11/18 05:53 Sodium Chloride (Saline Flush 2.5 Ml Monoject Prefil Syrin) 2.5 ml IV Q8 [facility] Stop: 09/11/18 05:59 Last Admin: 08/12/18 06:40 Dose: 2.5 ml Documented by: - Allergies Allergies/Adverse Reactions: No Known Allergies Allergy (Verified 08/12/18 05:37) Hospital Course Hospital Course: The patient is a 48-year-old -[place] male who presented to the emergency room with a 2-day history of worsening back pain, weakness and just feeling poorly. He began having rather significant back discomfort on 08/10/2018 and this is continued and worsened and then he developed severe right shoulder, right neck and the neck pain. He was seen at a local urgent care yesterday where he was treated with [id number] ibuprofen in addition to prednisone and Flexeril. He went home and took these medications and several hours later he had an episode where he became quite rigid and was unable to move his arms or legs at home. EMS was called but he refused to be transported to the emergency room and wanted his to take him in their own vehicle. When they arrived at the ER in the parking lot he had another episode of severe rigidity and inability to move his arms and legs which was accompanied by altered mental status. EMS was once again summoned and they brought him into the emergency room. The patient has had a severe headache for the past 2 days that is been worsening. He smokes marijuana and also 1 pack of day of cigarettes. He does drink beer on a regular basis and drinks about 4-5 beers a day. In the emergency room he was found to have a significant leukocytosis of greater than 19,000. He had no fever. He was started on empiric antibiotics and antiviral therapy and was admitted to the hospital for further evaluation and treatment. When I saw the patient this morning he was acutely encephalopathic. He knew his name. But he really would mumble incoherently and would not answer questions. He is quite agitated and has required several doses of IV lorazepam. At the time of admission the ER physician tried on several occasions to get a lumbar puncture but it cannot be obtained. He was started empirically on acyclovir as well as IV Rocephin. He had interventional radiology interventional radiology performed a lumbar puncture earlier this afternoon and called me from the procedure that the spinal fluid was quite cloudy. He has an elevated CRP of 216 and it is felt that his whole picture is consistent with meningitis. IV v ancomycin and meropenem has been ordered in addition to his Rocephin. He will continue IV acyclovir and IV fluids. I have ordered an MRI of the lumbar spine and hopefully we will get this done prior to him leaving the hospital. Due to his complicated picture and worsening mental status changes and the fact that the patient does drink and there is concerns for possible alcohol withdrawal and seizures he has been transitioned to the ICU. He is at high risk of decompensation and it is not felt safe to keep him here at this facility as we do not have the capability of taking care of him should he worsen. I have initiated a transfer to [facility] and Dr. Lopez from the medicine service has graciously agreed to accept this patient in transfer. He will be transferred to this facility as soon as a bed is found. Physical Exam Vital Signs: Temp Pulse Resp BP Pulse Ox 99.2 F 24 H 142/92 H 96 08/12/18 11:14 08/12/18 13:02 08/12/18 13:02 08/12/18 13:02 Intake & Output 08/11/18 08/12/18 08/13/18 06:59 06:59 06:59 Intake Total 1255 351.2 Balance 1255 351.2 Weight 65.2 kg General appearance: PRESENT: other - This is an acutely ill-appearing, agitated and confused 48-year-old -[place] gentleman. He does not appear to be in significant pain but is extremely agitated. Head exam: PRESENT: atraumatic, normocephalic Mouth exam: PRESENT: moist, tongue midline Neck exam: ABSENT: carotid bruit, JVD, lymphadenopathy, thyromegaly Respiratory exam: PRESENT: clear to auscultation keiko. ABSENT: rales, rhonchi, wheezes Cardiovascular exam: PRESENT: +S1, +S2, tachycardia. ABSENT: diastolic murmur, systolic murmur Pulses: PRESENT: normal dorsalis pedis pul GI/Abdominal exam: PRESENT: normal bowel sounds, soft. ABSENT: distended, guarding, mass, organolmegaly, rebound, tenderness Rectal exam: PRESENT: deferred Extremities exam: PRESENT: full ROM. ABSENT: calf tenderness, clubbing, pedal edema Neurological exam: PRESENT: altered, awake, oriented to person. ABSENT: alert, oriented to place, oriented to time, oriented to situation Psychiatric exam: PRESENT: agitated Skin exam: PRESENT: dry, intact, warm. ABSENT: cyanosis, rash Results Laboratory Results: 08/12/18 03:56 08/12/18 03:56 08/12/18 08/12/18 08/12/18 03:56 03:56 03:56 WBC 19.3 H RBC 4.50 Hgb 14.3 Hct 41.4 MCV 92 MCH 31.8 MCHC 34.5 RDW 13.9 Plt Count 172 Seg Neutrophils % Not Reportable Lymphocytes % Not Reportable Monocytes % Not Reportable Eosinophils % Not Reportable Basophils % Not Reportable Absolute Neutrophils Not Reportable Absolute Lymphocytes Not Reportable Absolute Monocytes Not Reportable Absolute Eosinophils Not Reportable Absolute Basophils Not Reportable Sodium 132.8 L Potassium 3.7 Chloride 94 L Carbon Dioxide 26 Anion Gap 13 BUN 17 Creatinine 1.05 Est GFR ( Amer) > 60 Est GFR (Non-Af Amer) > 60 Glucose 183 H Calcium 9.4 Phosphorus Total Bilirubin 0.7 AST 21 ALT 25 Alkaline Phosphatase 67 C-Reactive Protein Total Protein 7.0 Albumin 4.2 TSH 2.17 Free T4 1.03 Free T3 pg/mL 3.59 Urine Color Urine Appearance Urine pH Ur Specific [place] Urine Protein Urine Glucose (UA) Urine Ketones Urine Blood Urine Nitrite Ur Leukocyte Esterase Urine WBC (Auto) Urine RBC (Auto) 08/12/18 08/12/18 06:03 10:08 WBC RBC Hgb Hct MCV MCH MCHC RDW Plt Count Seg Neutrophils % Lymphocytes % Monocytes % Eosinophils % Basophils % Absolute Neutrophils Absolute Lymphocytes Absolute Monocytes Absolute Eosinophils Absolute Basophils Sodium Potassium Chloride Carbon Dioxide Anion Gap BUN Creatinine Est GFR ( Amer) Est GFR (Non-Af Amer) Glucose Calcium Phosphorus 2.3 L Total Bilirubin AST ALT Alkaline Phosphatase C-Reactive Protein 216.4 H Total Protein Albumin TSH Free T4 Free T3 pg/mL Urine Color YELLOW Urine Appearance CLEAR Urine pH 6.0 Ur Specific [place] 1.016 Urine Protein 30 H Urine Glucose (UA) 150 H Urine Ketones NEGATIVE Urine Blood SMALL H Urine Nitrite NEGATIVE Ur Leukocyte Esterase NEGATIVE Urine WBC (Auto) 3 Urine RBC (Auto) 3 08/12/18 08/12/18 08/12/18 03:56 03:56 10:08 Creatine Kinase 161 163 CK-MB (CK-2) 0.35 Troponin I < 0.012 08/12/18 10:08 Creatine Kinase CK-MB (CK-2) 0.49 Troponin I < 0.012 Impressions: Lumbar Puncture 08/12/18 00:00 IMPRESSION: Lumbar puncture under fluoroscopy. No immediate complication. Chest X-Ray 08/12/18 04:05 IMPRESSION: No acute cardiopulmonary abnormality copyright 2011 [employer]- All Rights Reserved Head CT 08/12/18 04:05 IMPRESSION: No acute intracranial findings. Guidance Fluoroscopy 08/12/18 05:25 IMPRESSION: Lumbar puncture under fluoroscopy. No immediate complication. Plan Discharge Plan: Patient will be transferred to [facility] soon as a bed is found. Time Spent: Greater than 30 Minutes
[2018-08-12 16:10] LABS: CSF TUBE NUMBER 1
[2018-08-12 16:12] LABS: APPEARANCE ALL TUBES CLOUDY; COLOR ALL TUBES STRAW
[2018-08-12 16:13] LABS: RED BLOOD CELL,CSF 280 /uL (0-10)
[2018-08-12 16:14] LABS: WHITE BLOOD CELL,CSF 6615 /uL (0-5)
[2018-08-12 16:15] LABS: APPEARANCE ALL TUBES CLOUDY; COLOR ALL TUBES STRAW; CSF TUBE NUMBER 4; MONONUCLEAR CELLS CSF 2 %
[2018-08-12 16:16] LABS: RED BLOOD CELL,CSF 180 /uL (0-10)
[2018-08-12 16:17] LABS: WHITE BLOOD CELL,CSF 6330 /uL (0-5)
[2018-08-12 16:26] LABS: GLUCOSE,CSF < 20 mg/dL (40-70); PROTEIN,CSF 764 mg/dL (12-60)
[2018-08-12 16:40] LABS: CREATINE KINASE MB 1.19 ng/mL (<4.55)
[2018-08-12 16:44] LABS: TROPONIN I < 0.012 ng/mL
[2018-08-12] MEDS ORDERED: CEFTRIAXONE 2 GM/D5W RTU 2 GM/50 ML RTUPB IV SCH (18:00)
[2018-08-12] MEDS ORDERED: MEROPENEM 1 GM in NORMAL SALINE 50 ML IV SCH (18:00)
--- NOTE | 2018-08-12 18:01 | EKG REPORT ---
SEVERITY:- BORDERLINE ECG - SINUS RHYTHM PROBABLE LEFT ATRIAL ABNORMALITY : Confirmed by: Geri Ko MD 12-Aug-2018 18:00:38
--- NOTE | 2018-08-12 18:23 | RADIOLOGY REPORT (SQ) ---
EXAM DESCRIPTION: MRI LUMBAR SPINE WITHOUT COMPLETED DATE/TIME: 08/12/2018 5:52 pm REASON FOR STUDY: severe back pain, pos bl cx, meningitis. COMPARISON: None. TECHNIQUE: Sagittal and Axial imaging includes T1, T2, STIR and gradient echo sequences. Coronal T2/ HASTE imaging. LIMITATIONS: Motion artifact FINDINGS: VISUALIZED UPPER ABDOMEN: Limited evaluation. No acute or suspicious findings suggested. SEGMENTATION: No transitional anatomy. The lowest well-developed disc space is labeled L5-S1. ALIGNMENT: Anatomic. VERTEBRAE: Intact. BONE MARROW: Normal. No marrow replacement or reactive changes. DISC SIGNAL: Multilevel disc desiccation and height loss, most significant at L4-L5 with a small broa d-based central posterior disc bulge. There is effacement of the bilateral lateral recesses at this level and moderate bilateral neural foraminal stenosis. POSTERIOR ELEMENTS: Multilevel facet degenerative disease, severe at L4-L5 and mild to moderate else where. No pars defect evident. HARDWARE: None in the spine. CORD AND CONUS: Normal in size and signal intensity. Conus at the appropriate level. SOFT TISSUES: No aortic aneurysm seen. No bulky retroperitoneal adenopathy or mass. No paraspinal mas s or fluid. LOWER THORACIC: Incompletely imaged. No stenosis seen. SACRUM: Visualized upper sacrum intact. OTHER: No other significant findings. IMPRESSION: 1. Examination of the lumbar spine is generally motion limited. Within this limitatio n, there is no evidence of discitis osteomyelitis or epidural abscess to explain back pain and fever. 2. There is generally mild multilevel disc and facet degenerative disease, with a small broad-based c entral posterior disc bulge at L4-L5 and severe facet degenerative disease at this level resulting in moderate bilateral neural foraminal stenosis and effacement of the bilateral lateral recesses. Ther e is no significant central lumbar canal stenosis. TECHNICAL DOCUMENTATION: JOB ID: [id number] [employer]- All Rights Reserved Reading location - IP/workstation name: [email or web address]
[2018-08-12] MEDS ORDERED: VANCOMYCIN HCL 750 MG in DEXTROSE 5%-WATER 250 ML IV SCH (22:00)
[2018-08-12 22:53] VITALS: BP 156/88
[2018-08-13] MEDS ORDERED: CEFTRIAXONE 2 GM/D5W RTU 2 GM/50 ML RTUPB IV SCH (06:00)
[2018-08-13] MEDS ORDERED: HEPARIN SOD (PORCINE) 5,000 UNIT/ML 1 ML SYRINGE SUBCUT SCH (19:00)
== END 2018-08-12 22:15 | disposition short-term general hospital (02) | DRG 98 ==
LOC: ER 03:50 → EH 05:47
PROVIDERS: ADMIT Emergency Medicine; ATTEND Emergency Medicine
PROC: 009U3ZX Drainage of Spinal Canal, Percutaneous Approach, Diagnostic (ICD-10-PCS; principal; 2018-08-12)
PROC: 009U3ZX Drainage of Spinal Canal, Percutaneous Approach, Diagnostic (ICD-10-PCS; 2018-08-12)
PROC: B01BZZZ Fluoroscopy of Spinal Cord (ICD-10-PCS; 2018-08-12)
DX: G03.9 Meningitis, unspecified (principal); G93.40 Encephalopathy, unspecified; E87.1 Hypo-osmolality and hyponatremia; B95.3 Streptococcus pneumoniae as the cause of diseases classified elsewhere; R41.82 Altered mental status, unspecified; M54.9 Dorsalgia, unspecified; R51 Headache; M25.511 Pain in right shoulder; M54.2 Cervicalgia; F12.90 Cannabis use, unspecified, uncomplicated; F10.20 Alcohol dependence, uncomplicated; F17.210 Nicotine dependence, cigarettes, uncomplicated; Y90.0 Blood alcohol level of less than 20 mg/100 ml
CPT/HCPCS: 36415; 62270; 70450; 71045; 72148; 77003; 80053; 80307; 81001; 82550; 82553; 82945; 82962; 83036; 84100; 84157; 84439; 84443; 84481; 84484; 85025; 85610; 85652; 85730; 86140; 86701; 87040; 87070; 87077; 87186; 87205; 87804; 89050; 93005; 93010; 96365; 96375; 99285; J0131; J0133; J0696; J1644; J2060; J2185; J2250; J2405; J3010; J3411; J3480; J3490; J7030; J7050